=== PATIENT | female | born 1945 | race Two or more races ===

== ENCOUNTER 2021-02-13 11:39 | Emergency (ER) | payer OTHER ==
[~2021-02-13] VITALS: Ht 162.6 cm; Wt 45.4 kg
== END 2021-02-13 13:34 | disposition home or self-care (01) ==
LOC: ER 11:39
DX: R42 Dizziness and giddiness (principal)

== ENCOUNTER 2023-07-05 08:34 | Outpatient (CLI) | payer OTHER | END 2023-07-05 08:48 | disposition home or self-care (01) | LOC: TOM 08:34 | PROVIDERS: ATTEND Internal Medicine | DX: J90 Pleural effusion, not elsewhere classified (principal); J94.8 Other specified pleural conditions; Z88.5 Allergy status to narcotic agent | CPT/HCPCS: 71260; Q9965 ==